=== PATIENT | male | born 1980 | race Caucasian/White ===

== ENCOUNTER 2024-03-12 14:42 | Emergency (ER) | payer SELFPAY ==
[2024-03-12 14:58] VITALS: TEMP 98.3; BMI 23.8
[2024-03-12 17:19] LABS: BASO % 0.5 % (0-2.0); EOS % 0.3 % (0-4.5); HEMATOCRIT 44.4 % (35.4-49); LYMPH % 11.1 % (8-40); MCHC 33.8 g/dl (32.0-35.9); MEAN CELL VOLUME 88.9 fl (80-96); MONO % 4.5 % (3.8-10.2); NEUT % 83.6 % (42.8-82.8); PLATELET COUNT 316 10^3/uL (134-434); RDW 13.6 % (11.9-15.9); WHITE BLOOD COUNT 11.4 K/mm3 (4.0-10.0)
[2024-03-12 17:35] LABS: POTASSIUM 4.3 mmol/L (3.5-5.1)
[2024-03-12 17:36] LABS: BLOOD UREA NITROGEN 4.6 mg/dL (7-18)
[2024-03-12 17:37] LABS: ALBUMIN 3.6 g/dl (3.4-5.0); CALCIUM 8.1 mg/dL (8.5-10.1); MAGNESIUM 2.1 mg/dL (1.8-2.4)
[2024-03-12 17:40] LABS: CREATININE 0.9 mg/dL (0.55-1.3)
[2024-03-12 17:42] LABS: BILIRUBIN,TOTAL 0.5 mg/dL (0.2-1)
[2024-03-12] MEDS ORDERED: ACETAMINOPHEN INJECTION 100 ML ONE (18:00)
[2024-03-12] MEDS ORDERED: MAG HYDROX/AL HYDROX/SIMETH 30 ML UNIT-DOSE CUP ONE (18:01)
[2024-03-12] MEDS: ACETAMINOPHEN 1000 MG/100 ML BAG IVPB ONE (18:06)
[2024-03-12] MEDS: MAG HYDROX/AL HYDROX/SIMETH 30 ML UNIT-DOSE CUP PO ONE (18:06)
[2024-03-12 18:07] VITALS: BP 115/72; PULSE 82; RESP 16
== END 2024-03-12 18:51 | disposition home or self-care (01) ==
LOC: JER 14:42
DX: F10.129 Alcohol abuse with intoxication, unspecified (principal); R00.2 Palpitations; R53.1 Weakness
CPT/HCPCS: 36415; 80053; 82962; 83735; 85025; 93005; 93010; 99284-25

== ENCOUNTER 2024-11-28 06:51 | Emergency (ER) | payer SELFPAY ==
[2024-11-28 06:57] VITALS: PULSE 91; TEMP 98.6; BMI 25.7
[2024-11-28] MEDS ORDERED: diazePAM CARPU-JECT 10 MG/2 ML DISP.SYRIN ONE (07:39)
[2024-11-28] MEDS ORDERED: FAMOTIDINE 20 MG/50 ML IVPB 20 MG/50 ML MG IVPB ONE (07:40)
[2024-11-28] MEDS ORDERED: MAG HYDROX/AL HYDROX/SIMETH 30 ML UNIT-DOSE CUP ONE (07:40)
[2024-11-28] MEDS: SODIUM CHLORIDE 0.9% 500 ML INFUS.BAG IV ONE (07:46)
[2024-11-28] MEDS: FAMOTIDINE 20 MG/50 ML IVPB 20 MG/50 ML MG IVPB ONE (07:46)
[2024-11-28] MEDS: diazePAM CARPU-JECT 10 MG/2 ML DISP.SYRIN IVPUSH ONE (07:47)
[2024-11-28] MEDS: MAG HYDROX/AL HYDROX/SIMETH 30 ML UNIT-DOSE CUP PO ONE (07:47)
[2024-11-28 08:42] LABS: ABSOLUTE IMMATURE GRANULOCYTES 0.03 x10^3/uL (0.0-0.031); BASOPHILS # 0.06 x10^3/uL (0.01-0.08); EOSINOPHIL % 0.3 % (0.8-7.0); EOSINOPHILS # 0.02 x10^3/uL (0.04-0.54); MCHC 33.8 g/dl (32.3-36.5); MEAN CELL VOLUME 86.3 fl (79.0-92.2); MEAN PLT VOLUME 9.3 fl (9.4-12.4); MONOCYTE # 0.39 x10^3/uL (0.30-0.82); MONOCYTE % 5.5 % (5.3-12.2); RDW 14.4 % (12.1-15.9)
[2024-11-28 09:01] LABS: CO2 24.0 mmol/L (21-32); GLUCOSE,RANDOM 136.0 mg/dL (74-106)
[2024-11-28 09:04] LABS: CREATININE 0.9 mg/dL (0.55-1.3); SGOT/AST 86.0 U/L (15-37)
[2024-11-28 09:07] LABS: ALK PHOS 130.0 U/L (45-117)
[2024-11-28 09:08] LABS: SGPT/ALT 94.0 U/L (13-61); TOT PROT 7.9 g/dl (6.4-8.2)
[2024-11-28 13:35] LABS: HCV DIAGNOSTIC IN-HOUSE W/RFLX NON-REACTIVE (NONREACTIVE)
[2024-11-28 13:36] LABS: HIV INTERPRETATION NEGATIVE (NEGATIVE)
[2024-11-28 14:40] VITALS: BP 122/80; RESP 16
== END 2024-11-28 14:41 | disposition home or self-care (01) ==
LOC: JER 06:51
PROC: 3E033GC Introduction of Other Therapeutic Substance into Peripheral Vein, Percutaneous Approach (ICD-10-PCS; principal; 2024-11-28)
PROC: 3E033NZ Introduction of Analgesics, Hypnotics, Sedatives into Peripheral Vein, Percutaneous Approach (ICD-10-PCS; 2024-11-28)
DX: F10.939 Alcohol use, unspecified with withdrawal, unspecified (principal); R25.1 Tremor, unspecified; R25.3 Fasciculation; R10.13 Epigastric pain; R11.0 Nausea
CPT/HCPCS: 36415; 71045-TC-FY; 76705-TC; 80053; 83690; 83735; 84484; 85025; 86803; 87389; 93005; 93010; 99285-25